=== PATIENT | female | born 1950 | race Caucasian/White ===

== ENCOUNTER 2017-02-10 14:01 | Emergency (ER) | payer BC ==
[~2017-02-10] VITALS: Ht 147.3 cm; Wt 72.6 kg
[~2017-02-10 14:01] MED LIST: ASPI81TA28 PO; ATEN50TA8 PO; CLOP1TAB15 PO; HYDR2TAB48 PO; IPRA1AER2 INH; MAGN400T6 PO; METO1TAB55 PO; MULT-506 PO; NITR0.4D TD; NORT10CA2 PO; OMEG10007 PO; PANC6000 PO; PANT40TA PO; TRAM-10 PO; TRIATAB3 PO
[2017-02-10 14:09] VITALS: TEMP 36.6; Ht 147.3 cm; Wt 72.6 kg
[2017-02-10] MEDS ORDERED: SODIUM CHLORIDE 0.9% 1000ML 1,000 ML IV STA (14:51)
[2017-02-10] MEDS ORDERED: ONDANSETRON INJ 2 MG/ML 2 ML VIAL IV STA ×2 (14:51→17:00)
[2017-02-10] MEDS ORDERED: HYDROmorphone INJ 1 MG/ML SYR IV STA (14:51)
[2017-02-10 15:18] LABS: URINE APPEARANCE CLEAR (CLEAR); URINE BILIRUBIN NEG (NEG); URINE COLOR YELLOW; URINE EPITHELIAL CELL AUTO 20-30 /lpf (0-5); URINE NITRITE NEG (NEG); URINE PH 7.5 (4.5-7.5); URINE SPECIFIC GRAVITY 1.009 (1.000-1.030); UROBILINOGEN NEG (NEG); ZZUR CULT IF INDIC CLEAN CATCH NO
[2017-02-10 15:25] LABS: MANUAL MICROSCOPIC REQUIRED? NO; REVIEW REQ? NO
[2017-02-10] MEDS ORDERED: NITR0.4D2 PO (15:32)
[2017-02-10 16:10] LABS: ALT/SGPT 46 U/L (12-78); AST/SGOT 31 U/L (15-37); BLOOD UREA NITROGEN 17 mg/dl (7-18); BUN/CREATININE RATIO 19.2 (10-20); CALCIUM 9.9 mg/dl (8.5-10.1); CARBON DIOXIDE 33 mmol/L (21-32); CHLORIDE 98 mmol/L (98-107); GLUCOSE 94 mg/dl (70-99); SODIUM 141 mmol/L (136-145)
[2017-02-10 16:13] LABS: ALKALINE PHOSPHATASE 66 U/L (45-117)
[2017-02-10 16:20] LABS: HEMATOCRIT 42.6 % (37-47); MEAN CELL VOLUME 86.2 fL (80-100); MEAN CORPUSCULAR HEMOGLOBIN 31.2 pg (25-34); MEAN CORPUSCULAR HGB CONC 36.2 g/dl (32-36); MEAN PLATELET VOLUME 10.1 fL (7.4-10.4); PLATELET COUNT 333 K/uL (130-400); RED BLOOD COUNT 4.94 M/uL (4.2-5.4)
[2017-02-10 16:22] LABS: COMPLETE YES; LYMPH ABS # 2.79 K/uL (1.2-3.4); LYMPHOCYTE % 26.1 %; NEUTROPHILS % 53.9 %; VARIANT LYM ABS # 1.68 K/uL; VARIANT LYMPHOCYTE % 15.7 %
[2017-02-10] MEDS ORDERED: OPTIRAY 320 IV PRN (17:15)
--- NOTE | 2017-02-10 18:20 | DIAGNOSTIC IMAGING REPORT ---
CT SCAN OF THE ABDOMEN AND PELVIS WITH IV CONTRAST CLINICAL HISTORY: Right lower quadrant abdominal pain. COMPARISON STUDY: Prior abdominal CT scans, most recently dated 10/17/2016. TECHNIQUE: Following the IV administration of 115 cc of Optiray 320, CT scan of the abdomen and pelvis is performed from the lung bases to the proximal femora. Images are reviewed in the axial, sagittal, and coronal planes. IV contrast was administered without complication. Automated dose control exposure was utilized. CT DOSE: 452.60 mGy.cm FINDINGS: Lung bases: The heart is normal in size and without pericardial effusion. The lung bases are clear. There is a tiny hiatal hernia. Liver: The contrast-enhanced liver is enlarged, measuring 22 cm in length. The liver demonstrates diffusely diminished attenuation consistent with hepatic steatosis. There is mild central intrahepatic biliary ductal dilatation. The hepatic veins and portal veins are patent. Gallbladder: Surgically absent noting clips in the gallbladder fossa. Spleen: Normal in size and attenuation. Pancreas: Mildly atrophic and grossly unremarkable. Adrenal glands: Unremarkable. Kidneys: The contrast enhanced kidneys demonstrate mild cortical atrophy and are without hydronephrosis. The kidneys enhance symmetrically. Subcentimeter cortical hypodensities likely represent cysts but are too small for definitive characterization. Abdominal vasculature: The abdominal aorta is normal in course and caliber noting mild to moderate atherosclerotic calcification. Bowel: Mild wall no bowel obstruction is identified. A duodenal diverticulum is incidentally noted. The appendix is well-visualized and normal. Peritoneum: There is no intraperitoneal free air or abdominal ascites. There is a small fat-containing umbilical hernia. Lymphadenopathy: None. Pelvic viscera: The bladder is normal in appearance. The uterus is surgically absent. No adnexal lesion is seen. Skeletal structures: The skeletal structures are osteopenic. There is mild lumbosacral spondylosis. No lytic or blastic lesions are seen. IMPRESSION: 1. There are no acute infectious or inflammatory findings in the abdomen or pelvis. 2. Hepatomegaly and hepatic steatosis. 3. Additional findings as above. Electronically signed by: Zoltan Pelayo M.D. 02/10/2017 6:18 PM Dictated Date/Time: 02/10/2017 6:12 PM
[2017-02-10] MEDS ORDERED: ONDA4TAB46 PO (18:46)
[2017-02-10 19:04] VITALS: BP 125/74; PULSE 61; O2SAT 95
--- NOTE | 2017-02-10 21:19 | EMERGENCY ROOM VISIT NOTE ---
History Report prepared by Giana: Elvia Bergeron Under the Supervision of: Portia BaumO. First contact with patient: 14:31 Chief Complaint: ABDOMINAL PAIN Stated Complaint: SEVERE PAIN IN LWR RT SIDE AND BACK History of Present Illness The patient is a 66 year old female who presents to the Emergency Room with complaints of worsening right-sided back pain for the past 4 days. She states that her pain began suddenly while she was walking. It felt like she pulled something in her back. About an hour after the onset of her pain she began experiencing pain in her RLQ. She denies the pain wrapping around her side and states that it "just goes straight through from the back." Movement exacerbates her pain. The patient describes her pain as achy and states that yesterday it was shooting down her right leg. She also notes nausea, rhinorrhea, and cloudy urine. She has a history of kidney stones, but states that this does not feel like her typical stone because of the pain in her abdomen. She also has a history of chronic pancreatitis and states, "I think I had pancreatitis last week." The patient denies vomiting, dysuria, cough, headache, numbness, and weakness. She still has her appendix. The patient rates her current pain as a 7/ 10 in severity. She denies any weakness or numbness in her legs. No trouble ambulate. Source of History: patient Onset: 4 days ago Position: back (right-sided) Symptom Intensity: 7/10 Quality: ache Timing: worsening Modifying Factors (Worsening): movement Associated Symptoms: + abdominal pain, + nausea, + urinary symptoms (notes cloudy urine, denies dysuria), No cough, No headache, No numbness, No vomiting, No weakness Note: Pt notes rhinorrhea. Review of Systems See HPI for pertinent positives & negatives. A total of 10 systems reviewed and were otherwise negative. Past Medical & Surgical Medical Problems: (1) Benign hypertension (2) Bronchitis (3) Cholecystectomy (4) Chronic hepatitis (5) Deep venous thrombosis (6) Dyslipidemia (7) Hysterectomy (8) itractable abd pain,. 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 (12) Vomiting Family History Diabetes mellitus Kidney disease Social History Smoking Status: Never Smoker Alcohol Use: none Drug Use: none Marital Status: Housing Status: lives alone Occupation Status: employed Current/Historical Medications Scheduled Aspirin (Aspirin Ec), 81 MG PO DAILY Atenolol (Tenormin), 50 MG PO DAILY Clopidogrel (Plavix), 75 MG PO DAILY Fish Oil ([place]-3), 4 CAP PO HS Magnesium Oxide (Mag-Ox), 400 MG PO 2XWK Metoclopramide Hcl (Reglan), 5 MG PO HS Multivitamin (Multivitamin), 1 TAB PO DAILY Nitroglycerin (Nitroglycerin Transdermal), 1 PATCH PO DAILY Nortriptyline (Pamelor), 10 MG PO HS Pancrelipase (Lipase-Protease- (Creon), 2 CAP PO TIDM Pantoprazole (Protonix), 40 MG PO DAILY Triamterene/Hctz (Triamterene/Hctz 37.5-25MG), 1 TAB PO DAILY Scheduled PRN Hydromorphone Hcl (Dilaudid), 2 MG PO Q4H PRN for Pain Ondansetron Hcl (Zofran), 4 MG PO TID PRN for Nausea Tramadol (Ultram), 50 MG PO Q12 PRN for Pain Allergies Coded Allergies: Morphine (Verified Adverse Reaction, Mild, AFFECTS LIVER, 10/17/16) Statins (Verified Adverse Reaction, Mild, AFFECTS LIVER, 10/17/16) Ciprofloxacin (Verified Adverse Reaction, Unknown, GI SYMPTOMS, 10/17/16) Physical Exam Vital Signs Date Time Temp Pulse Resp B/P Pulse Ox O2 Delivery O2 Flow Rate FiO2 02/10/17 19:04 61 16 125/74 95 02/10/17 17:12 58 16 129/71 96 Room Air 02/10/17 15:49 61 18 116/70 96 Room Air 02/10/17 14:09 36.6 67 18 124/58 96 Room Air Physical Exam GENERAL: alert, well appearing, well nourished, no distress, non-toxic, sitting up in bed, disheveled. EYE EXAM: normal conjunctiva OROPHARYNX: no exudate, no erythema, lips, buccal mucosa, and tongue normal and mucous membranes are moist NECK: supple, no nuchal rigidity, no adenopathy, non-tender LUNGS: Clear to auscultation. Normal chest wall mechanics HEART: no murmurs, S1 normal and S2 normal ABDOMEN: abdomen soft, minimal tenderness in the right mid to lower quadrant, normo-active bowel sounds, no masses, no rebound or guarding. BACK: Back is symmetrical on inspection and there is no deformity, acute reproducible right lower lumbar perispinal tenderness, no bruising or induration. SKIN: no rashes and no bruising UPPER EXTREMITIES: upper extremities are grossly normal. LOWER EXTREMITIES: Legs: flexion/extension hip, knee, ankle, and EHL 5/5 bilaterally. Patellar and Achilles reflexes are 1/4 bilaterally, gross sensation intact. NEURO EXAM: Normal sensorium, cranial nerves II-XII grossly intact, normal speech, no gross weakness of arms, no gross weakness of legs. Medical Decision & Procedures ER Provider Diagnostic Interpretation: Radiology results as stated below per my review and the radiologist's interpretation: CT SCAN OF THE ABDOMEN AND PELVIS WITH IV CONTRAST CLINICAL HISTORY: Right lower quadrant abdominal pain. COMPARISON STUDY: Prior abdominal CT scans, most recently dated 10/17/2016. TECHNIQUE: Following the IV administration of 115 cc of Optiray 320, CT scan of the abdomen and pelvis is performed from the lung bases to the proximal femora. Images are reviewed in the axial, sagittal, and coronal planes. IV contrast was administered without complication. Automated dose control exposure was utilized. CT DOSE: 452.60 mGy.cm FINDINGS: Lung bases: The heart is normal in size and without pericardial effusion. The lung bases are clear. There is a tiny hiatal hernia. Liver: The contrast-enhanced liver is enlarged, measuring 22 cm in length. The liver demonstrates diffusely diminished attenuation consistent with hepatic steatosis. There is mild central intrahepatic biliary ductal dilatation. The hepatic veins and portal veins are patent. Gallbladder: Surgically absent noting clips in the gallbladder fossa. Spleen: Normal in size and attenuation. Pancreas: Mildly atrophic and grossly unremarkable. Adrenal glands: Unremarkable. Kidneys: The contrast enhanced kidneys demonstrate mild cortical atrophy and are without hydronephrosis. The kidneys enhance symmetrically. Subcentimeter cortical hypodensities likely represent cysts but are too small for definitive characterization. Abdominal vasculature: The abdominal aorta is normal in course and caliber noting mild to moderate atherosclerotic calcification. Bowel: Mild wall no bowel obstruction is identified. A duodenal diverticulum is incidentally noted. The appendix is well-visualized and normal. Peritoneum: There is no intraperitoneal free air or abdominal ascites. There is a small fat-containing umbilical hernia. Lymphadenopathy: None. Pelvic viscera: The bladder is normal in appearance. The uterus is surgically absent. No adnexal lesion is seen. Skeletal structures: The skeletal structures are osteopenic. There is mild lumbosacral spondylosis. No lytic or blastic lesions are seen. IMPRESSION: 1. There are no acute infectious or inflammatory findings in the abdomen or pelvis. 2. Hepatomegaly and hepatic steatosis. 3. Additional findings as above. Electronically signed by: Zoltan Pelayo M.D. 02/10/2017 6:18 PM Dictated Date/Time: 02/10/2017 6:12 PM Laboratory Results 02/10/17 15:40 Red Blood Count 4.94, Mean Corpuscular Volume 86.2, Mean Corpuscular Hemoglobin 31.2, Mean Corpuscular Hemoglobin Concent 36.2, Mean Platelet Volume 10.1 02/10/17 15:40 Test 02/10/17 15:04 02/10/17 15:40 Urine Color YELLOW Urine Appearance CLEAR (CLEAR) Urine pH 7.5 (4.5-7.5) Urine Specific [place] 1.009 (1.000-1.030) Urine Protein NEG (NEG) Urine Glucose (UA) NEG (NEG) Urine Ketones NEG (NEG) Urine Occult Blood NEG (NEG) Urine Nitrite NEG (NEG) Urine Bilirubin NEG (NEG) Urine Urobilinogen NEG (NEG) Urine Leukocyte Esterase TRACE (NEG) Urine WBC (Auto) 1-5 /hpf (0-5) Urine RBC (Auto) 0-4 /hpf (0-4) Urine Hyaline Casts (Auto) 0 /lpf (0-5) Urine Epithelial Cells (Auto) 20-30 /lpf (0-5) Urine Bacteria (Auto) NEG (NEG) White Blood Count 10.70 K/uL (4.8-10.8) Red Blood Count 4.94 M/uL (4.2-5.4) Hemoglobin 15.4 g/dL (12.0-16.0) Hematocrit 42.6 % (37-47) Mean Corpuscular Volume 86.2 fL (80-100) Mean Corpuscular Hemoglobin 31.2 pg (25-34) Mean Corpuscular Hemoglobin Concent 36.2 g/dl (32-36) Platelet Count 333 K/uL (130-400) Mean Platelet Volume 10.1 fL (7.4-10.4) RDW Standard Deviation 40.7 fL (36.4-46.3) RDW Coefficient of Variation 12.8 % (11.5-14.5) Neutrophils % (Manual) 53.9 % Lymphocytes % (Manual) 26.1 % Variant Lymphocytes % (manual) 15.7 % Monocytes % (Manual) 4.3 % Neutrophils # (Manual) 5.77 K/uL (1.4-6.5) Total Absolute Neutrophils 5.77 K/uL (1.4-6.5) Lymphocytes # (Manual) 2.79 K/uL (1.2-3.4) Absolute Variant Lymphocytes 1.68 K/uL Total Absolute Lymphocytes 4.47 K/uL (1.2-3.4) Monocytes # (Manual) 0.46 K/uL (0.11-0.59) Red Blood Cell Morphology Unremarkable Anion Gap 10.0 mmol/L (3-11) Est Creatinine Clear Calc Drug Dose 53.4 ml/min Estimated GFR () 78.3 Estimated GFR (Non- 67.6 BUN/Creatinine Ratio 19.2 (10-20) Calcium Level 9.9 mg/dl (8.5-10.1) Total Bilirubin 0.5 mg/dl (0.2-1) Direct Bilirubin < 0.1 mg/dl (0-0.2) Aspartate Amino Transf (AST/SGOT) 31 U/L (15-37) Alanine Aminotransferase (ALT/SGPT) 46 U/L (12-78) Alkaline Phosphatase 66 U/L (45-117) Total Protein 8.6 gm/dl (6.4-8.2) Albumin 4.2 gm/dl (3.4-5.0) Lipase 184 U/L (73-393) Laboratory results per my review. Medications Administered Medications (Trade) Dose Ordered Sig/Cong Route Start Time Stop Time Status Last Admin Dose Admin Sodium Chloride (Nss 1000ml) 1,000 ml @ 999 mls/hr Q1H1M STAT IV 02/10/17 14:51 02/10/17 15:51 DC 02/10/17 15:49 999 MLS/HR Ondansetron HCl (Zofran Inj) 4 mg NOW STAT IV 02/10/17 14:51 02/10/17 14:53 DC 02/10/17 15:49 4 MG Hydromorphone HCl (Dilaudid Inj) 1 mg NOW STAT IV 02/10/17 14:51 02/10/17 14:53 DC 02/10/17 15:49 1 MG Ondansetron HCl (Zofran Inj) 4 mg NOW STAT IV 02/10/17 17:00 02/10/17 17:01 DC 02/10/17 17:11 4 MG ED Course ED COURSE: Vital signs were reviewed and showed normal vitals. The patients medical record was reviewed The above diagnostic studies were performed and reviewed. ED treatments and interventions as stated above. 1440: The patient was evaluated in room A2. A complete history and physical examination was performed. 1451: Dilaudid 1 mg IV, Zofran 4 mg IV, NSS 1000 ml @ 999 mls/hr IV 1700: Zofran 4 mg IV 1716: The patient is at CT. I updated her family. 1833: Upon reevaluation, the patient is feeling better and resting comfortably. She wants to go home. I discussed my findings with the patient and she understands and agrees with the treatment plan. Based on the patients age, coexisting illnesses, exam and lab findings the decision to treat as an outpatient was made. The patient remained stable while under my care. The patient appeared well at the time of discharge. Medical Decision Differential diagnoses includes but is not limited to gastritis, peptic ulcer disease, GERD, pancreatitis, small bowel obstruction, acute coronary syndrome, pericarditis, ischemic bowel, irritable bowel disease, irritable bowel syndrome , appendicitis, diverticulitis, malignancy, hernia, urinary tract infection, torsion, perforation, trauma, infectious. Patient is a 66-year-old female who presents the ER for lower back pain associated with right lower quadrant abdominal pain. She notes that started 2-3 days ago. No trouble moving her bowels. She does have a history of pancreatitis. Vitals were unremarkable. Labs show no significant leukocytosis or anemia. BMP shows a mild hypokalemia at 3.0. LFTs along with bilirubin and lipase were normal. UA was normal. CT of the abdomen and pelvis shows no obstruction, stone which is not supported by UA, pericarditis or appendicitis. Patient is given IV normal saline, Zofran and Dilaudid 1. She felt slightly better. She was updated in regards to your findings. Offered observation due to possible chronic pancreatitis and muscle skeletal back pain but patient declined and left to follow-up follow with her primary care doctor. Discussed with Pt concerning signs and symptoms to watch out for. Pt was instructed to follow up with their PCP and discussed with the patient their option to return to the ED at anytime for persistent or worsening symptoms. The appropriate anticipatory guidance and out-patient management, including indications for return to the emergency department, were explained at length to the patient and understood. Impression Primary Impression: Pancreatitis Additional Impression: Back pain Scribe Attestation The scribe's documentation has been prepared under my direction and personally reviewed by me in its entirety. I confirm that the note above accurately reflects all work, treatment, procedures, and medical decision making performed by me. Departure Information Dispostion Home / Self-Care Prescriptions Ondansetron Hcl (ZOFRAN) 4 Mg Tab 4 MG PO TID Y for Nausea, #20 TAB Prov: Jaime Gilbert, DO 02/10/17 Referrals No Doctor, Assigned (PCP) Forms HOME CARE DOCUMENTATION FORM, IMPORTANT VISIT INFORMATION Patient Instructions Abdominal Pain - [facility], [facility], Pancreatitis Acute Dc Additional Instructions Please follow up with your primary care doctor with in the next 24 hours. Any worsening of your symptoms, please return to the ED immediately. This includes fevers grade and 100.4, persistent nausea vomiting, worsening the pain, or any other concerning signs or symptoms from your standpoint. Problem Qualifiers Primary Impression: Pancreatitis Chronicity: acute Pancreatitis type: unspecified pancreatitis type Acute pancreatitis complication: unspecified Qualified Codes: K85.90 - Acute pancreatitis without necrosis or infection, unspecified Additional Impression: Back pain Back pain location: low back pain Chronicity: acute Back pain laterality: right Sciatica presence: without sciatica Qualified Codes: M54.5 - Low back pain
== END 2017-02-10 19:05 | disposition home or self-care (01) ==
LOC: C.EDB 14:02 → C.EDA 19:05
DX: K85.90 Acute pancreatitis without necrosis or infection, unspecified (principal); M54.5 Low back pain; I10 Essential (primary) hypertension; E78.5 Hyperlipidemia, unspecified; Z83.3 Family history of diabetes mellitus; Z79.82 Long term (current) use of aspirin

== ENCOUNTER 2017-05-31 10:06 | Emergency (ER) | payer BC, OTHER ==
[~2017-05-31 10:06] MED LIST changes: -IPRA1AER2 INH; -NITR0.4D TD; +NITR0.4D2 PO; +ONDA4TAB46 PO
[2017-05-31 10:25] VITALS: TEMP 36.7; Ht 147.3 cm
--- NOTE | 2017-05-31 11:10 | DIAGNOSTIC IMAGING REPORT ---
RIGHT ANKLE MIN 3 VIEWS ROUTINE CLINICAL HISTORY: ANKLE PAIN Right pain COMPARISON: None. DISCUSSION: The bones and joint spaces appear intact. There is no evidence of fracture, dislocation or bony disease. There is no evidence for soft tissue swelling. IMPRESSION: Negative study. The above report was generated using voice recognition software. It may contain grammatical, syntax or spelling errors. Electronically signed by: Lazarus Braden M.D. 05/31/2017 11:08 AM Dictated Date/Time: 05/31/2017 11:08 AM
[2017-05-31] MEDS ORDERED: HYDROmorphone INJ 1 MG/ML SYR IV STA (11:11)
--- NOTE | 2017-05-31 11:16 | EMERGENCY ROOM VISIT NOTE ---
History First contact with patient: 11:02 Chief Complaint: ANKLE PAIN Stated Complaint: RT ANKLE AND LEG PAIN History of Present Illness The patient is a 66 year old female who presents to the Emergency Room with complaints of right leg pain. The patient states that 2 days ago she got up out of a chair and had a severe pain in the right ankle and leg. The patient states that occasionally the pain will radiate from the low back down the right leg. She states the most severe pain is on the medial aspect of the right tib- fib and ankle. She rates her discomfort a 9/10. She states that she is not able to walk. She states that she is not able to function at home because of the pain. The patient was seen at an emergency department and had a normal x- ray. The patient's pain has continued to worsen. She denies any fevers. She denies any pain in her chest or trouble breathing. She denies any abdominal pain, nausea or vomiting. She states it is occasionally red, swollen and warm. The patient states that she has had phlebitis and neuritis in the past and feels that the pain is similar. Review of Systems A 10 system review of systems was completed with positives and pertinent negatives listed in the HPI. Past Medical/Surgical History Medical Problems: (1) Benign hypertension (2) Bronchitis (3) Cholecystectomy (4) Chronic hepatitis (5) Deep venous thrombosis (6) Dyslipidemia (7) Hysterectomy (8) itractable abd pain,. 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 (12) Vomiting Family History Diabetes mellitus Kidney disease Social History Smoking Status: Never Smoker Alcohol Use: none Drug Use: none Marital Status: Housing Status: lives alone Occupation Status: employed Current/Historical Medications Scheduled Aspirin (Aspirin Ec), 81 MG PO DAILY Atenolol (Tenormin), 50 MG PO DAILY Clopidogrel (Plavix), 75 MG PO DAILY Fish Oil ([place]-3), 4 CAP PO HS Magnesium Oxide (Mag-Ox), 400 MG PO 2XWK Metoclopramide Hcl (Reglan), 5 MG PO HS Multivitamin (Multivitamin), 1 TAB PO DAILY Nitroglycerin (Nitroglycerin Transdermal), 1 PATCH PO DAILY Nortriptyline (Pamelor), 10 MG PO HS Pancrelipase (Lipase-Protease- (Creon), 2 CAP PO TIDM Pantoprazole (Protonix), 40 MG PO DAILY Potassium Chloride (Micro-K Ext Rel), 10 MEQ PO DAILY Triamterene/Hctz (Triamterene/Hctz 37.5-25MG), 1 TAB PO DAILY Scheduled PRN Hydromorphone Hcl (Dilaudid), 2 MG PO Q4H PRN for Pain Ondansetron Hcl (Zofran), 4 MG PO TID PRN for Nausea Tramadol (Ultram), 50 MG PO Q12 PRN for Pain Physical Exam Vital Signs Date Time Temp Pulse Resp B/P (MAP) Pulse Ox O2 Delivery O2 Flow Rate FiO2 05/31/17 15:16 67 16 114/66 96 Room Air 05/31/17 13:56 62 16 144/77 96 Room Air 05/31/17 12:12 67 16 143/89 94 Room Air 05/31/17 10:25 36.7 72 20 115/74 94 Room Air Physical Exam VITALS: Vitals are noted on the nurse's note and reviewed by myself. Vital signs stable. The patient is afebrile. GENERAL: This is a 66-year-old female, in no acute distress, nondiaphoretic, well-developed well-nourished. SKIN: The skin was without rashes, erythema, edema, or bruising. There is no tenting of the skin. Capillary reflex less than 2 seconds. HEAD: Normocephalic atraumatic. EARS: The external ears are normal in appearance. EYES: Pupils equal round and reactive to light and accommodation. Conjunctivae without injection, sclerae without icterus. Extraocular movements intact. NOSE: Patent, turbinates without inflammation or discharge. MOUTH: Mucous membranes moist. Tonsils are not enlarged. Pharynx without erythema or exudate. Uvula midline. Airway patent. Tongue does not deviate. NECK: Supple without nuchal rigidity. No lymphadenopathy. No thyromegaly. Cervical spine is nontender. No JVD. HEART: Regular rate and rhythm without murmurs gallops or rubs. LUNGS: Clear to auscultation bilaterally without wheezes, rales or rhonchi. No retractions or accessory muscle use. MUSCULOSKELETAL: No muscle atrophy, erythema, or edema noted. There is tenderness to palpation in the lower lumbar spine. There is marked tenderness to palpation over the right lower extremity on the medial aspect. The remaining extremities are otherwise unremarkable Strength 5/5 throughout. NEURO: Patient was alert and oriented to person place and time. Normal sensation to light and sharp touch. Deep tendon reflexes 2+ in the lower extremities bilaterally. No focal neurological deficits. Medical Decision & Procedures ER Provider Diagnostic Interpretation: LUMBAR SPINE WITHOUT CT DOSE: 612.18 mGycm HISTORY: Pain low back and right leg pain TECHNIQUE: Multiaxial CT images of the lumbar spine were performed and reformatted in the sagittal and coronal plane without the use of contrast. A dose lowering technique was utilized adhering to the principles of ALARA. COMPARISON: None. FINDINGS: No fractures. No subluxation. Paraspinal soft tissues are unremarkable. IMPRESSION: No fractures within the lumbar spine. RIGHT VENOUS DOPP LOWER EXT UNILAT CLINICAL HISTORY: right leg pain Right pain. Edema. TECHNIQUE: Venous Doppler COMPARISON STUDY: None FINDINGS: Normal study IMPRESSION: Normal study RIGHT ANKLE MIN 3 VIEWS ROUTINE CLINICAL HISTORY: ANKLE PAIN Right pain COMPARISON: None. DISCUSSION: The bones and joint spaces appear intact. There is no evidence of fracture, dislocation or bony disease. There is no evidence for soft tissue swelling. IMPRESSION: Negative study. Laboratory Results 05/31/17 11:22 Red Blood Count 4.84, Mean Corpuscular Volume 89.9, Mean Corpuscular Hemoglobin 32.2, Mean Corpuscular Hemoglobin Concent 35.9, Mean Platelet Volume 10.1, Neutrophils (%) (Auto) 65.0, Lymphocytes (%) (Auto) 24.7, Monocytes (%) (Auto) 8.3, Eosinophils (%) (Auto) 1.3, Basophils (%) (Auto) 0.4, Neutrophils # (Auto) 8.28, Lymphocytes # (Auto) 3.14, Monocytes # (Auto) 1.06, Eosinophils # (Auto) 0.16, Basophils # (Auto) 0.05 05/31/17 11:22 Test 05/31/17 11:22 05/31/17 11:31 White Blood Count 12.73 K/uL (4.8-10.8) Red Blood Count 4.84 M/uL (4.2-5.4) Hemoglobin 15.6 g/dL (12.0-16.0) Hematocrit 43.5 % (37-47) Mean Corpuscular Volume 89.9 fL (80-100) Mean Corpuscular Hemoglobin 32.2 pg (25-34) Mean Corpuscular Hemoglobin Concent 35.9 g/dl (32-36) Platelet Count 364 K/uL (130-400) Mean Platelet Volume 10.1 fL (7.4-10.4) Neutrophils (%) (Auto) 65.0 % Lymphocytes (%) (Auto) 24.7 % Monocytes (%) (Auto) 8.3 % Eosinophils (%) (Auto) 1.3 % Basophils (%) (Auto) 0.4 % Neutrophils # (Auto) 8.28 K/uL (1.4-6.5) Lymphocytes # (Auto) 3.14 K/uL (1.2-3.4) Monocytes # (Auto) 1.06 K/uL (0.11-0.59) Eosinophils # (Auto) 0.16 K/uL (0-0.5) Basophils # (Auto) 0.05 K/uL (0-0.2) RDW Standard Deviation 43.8 fL (36.4-46.3) RDW Coefficient of Variation 13.2 % (11.5-14.5) Immature Granulocyte % (Auto) 0.3 % Immature Granulocyte # (Auto) 0.04 K/uL (0.00-0.02) Erythrocyte Sedimentation Rate 17 mm/hr (0-21) Anion Gap 7.0 mmol/L (3-11) Estimated GFR () 61.4 Estimated GFR (Non- 53.0 BUN/Creatinine Ratio 18.7 (10-20) Uric Acid 10.6 mg/dl (2.6-7.2) Calcium Level 10.5 mg/dl (8.5-10.1) Total Bilirubin 0.8 mg/dl (0.2-1) Aspartate Amino Transf (AST/SGOT) 81 U/L (15-37) Alanine Aminotransferase (ALT/SGPT) 74 U/L (12-78) Alkaline Phosphatase 99 U/L (45-117) Total Creatine Kinase 110 U/L (26-192) C-Reactive Protein 2.69 mg/dl (0-0.29) Total Protein 8.7 gm/dl (6.4-8.2) Albumin 4.0 gm/dl (3.4-5.0) Globulin 4.7 gm/dl (2.5-4.0) Albumin/Globulin Ratio 0.9 (0.9-2) Prothrombin Time 10.2 SECONDS (9.0-12.0) Prothromb Time International Ratio 1.0 (0.9-1.1) Activated Partial Thromboplast Time 27.1 SECONDS (21.0-31.0) Partial Thromboplastin Ratio 1.0 Medications Administered Medications (Trade) Dose Ordered Sig/Cong Route Start Time Stop Time Status Last Admin Dose Admin Hydromorphone HCl (Dilaudid Inj) 1 mg NOW STAT IV 05/31/17 11:11 05/31/17 11:14 DC 05/31/17 11:25 1 MG Ondansetron HCl (Zofran Odt) 4 mg ONE ONCE PO 05/31/17 12:15 05/31/17 12:16 DC 05/31/17 12:12 4 MG Ketorolac Tromethamine (Toradol Inj) 30 mg NOW STAT IV 05/31/17 13:33 05/31/17 13:35 DC 05/31/17 13:54 30 MG Promethazine HCl 25 mg/Sodium Chloride 51 ml @ 204 mls/hr NOW STAT IV 05/31/17 13:33 05/31/17 13:47 DC 05/31/17 13:54 204 MLS/HR Potassium Chloride (Klor-Con M10) 40 meq NOW STAT PO 05/31/17 14:38 05/31/17 14:39 DC 05/31/17 15:10 40 MEQ ED Course The patient was seen and examined. Previous visits were reviewed. The patient does not have a fever. She does have a leukocytosis of 12.73. Her sedimentation rate is not elevated. Potassium is low at 3.0. Uric acid is elevated at 10.6. CRP is elevated at 2.69. INR is 1.0. X-ray of the right ankle does not reveal acute abnormality Ultrasound of the right lower extremities negative for DVT or phlebitis CT scan of the lumbar spine does not reveal any acute finding the patient was given 1 mg IV Dilaudid and 4 mg IV Zofran She was given 30 mg IV Toradol She was given 25 mg IV Phenergan as her nausea persisted. She was given 40 mEq by mouth K-dur for for the hypokalemia. The patient presents to the emergency department with severe lower extremity pain. The pain is over the medial malleolus but radiates proximally. She states she also occasionally has pain in the low back that radiates down the leg. The exact etiology of the patient's symptoms are not clear at this time. It could represent gout. She does not have any redness, swelling, warmth of the toes or ankle on the right. There is no sign of cellulitis. There is no evidence for DVT. There is no evidence for phlebitis. I considered that this could be coming from her back. CT imaging of the lumbar spine does not reveal any significant obvious abnormality. The patient complains of severe pain seems to be out of proportion. As the etiology was not clear, I did ask my attending physician, Dr. Ho, to also evaluate the patient. He evaluated her and recommended a walker, follow-up with orthopedics for further evaluation and management. The patient does take Plavix so I was hesitant to give her anti -inflammatories. She was given a small prescription for potassium tablets at her request. She also states that she has Dilaudid and oxycodone at home. She was given a walker. She should return to the ER with any worsening symptoms. Otherwise, she should follow-up with her family doctor in/or orthopedics if symptoms persist. The patient was also seen and examined by who agrees with the assessment and treatment plan. Medical Decision DIFFERENTIAL DIAGNOSIS: Lumbar strain, degenerative disc disease, spondylolisthesis, herniated disc, spinal stenosis, osteoporosis, fracture, cauda equina syndrome, neoplasm, infection, inflammatory arthritis, phlebitis, DVT, fracture, gout, strain, sprain, among others. Blood Pressure Screening Patient's blood pressure: Normal blood pressure Blood pressure disposition: Did not require urgent referral Impression Primary Impression: Right ankle pain Additional Impression: Hypokalemia Departure Information Dispostion Home / Self-Care Condition GOOD Prescriptions Potassium Chloride (Micro-K Ext Rel) 10 Meq Capcr 10 MEQ PO DAILY for 5 Days, #5 CAP Prov: Halie Thapa PA-C 05/31/17 Referrals No Doctor, Assigned (PCP) Patient Instructions My [facility] [place] [facility] Additional Instructions Take your pain medication as prescribed, as needed Take the potassium as prescribed Try anti-inflammatories use with caution given that you take Plavix Contact your family doctor and/or orthopedics first thing in the morning to schedule a follow-up appointment Return with any worsening symptoms Problem Qualifiers
[2017-05-31 11:39] LABS: BASO % 0.4 %; BASO ABS # 0.05 K/uL (0-0.2); COMPLETE YES; EOS % 1.3 %; HEMATOCRIT 43.5 % (37-47); IG% 0.3 %; LYMPH % 24.7 %; LYMPH ABS # 3.14 K/uL (1.2-3.4); MEAN CELL VOLUME 89.9 fL (80-100); MEAN CORPUSCULAR HEMOGLOBIN 32.2 pg (25-34); MEAN CORPUSCULAR HGB CONC 35.9 g/dl (32-36); MEAN PLATELET VOLUME 10.1 fL (7.4-10.4); MONO % 8.3 %; PLATELET COUNT 364 K/uL (130-400); RED BLOOD COUNT 4.84 M/uL (4.2-5.4); WHITE BLOOD COUNT 12.73 K/uL (4.8-10.8)
[2017-05-31 11:59] LABS: PROTHROMBIN TIME (PATIENT) 10.2 SECONDS (9.0-12.0)
[2017-05-31 12:00] LABS: ALT/SGPT 74 U/L (12-78); BLOOD UREA NITROGEN 21 mg/dl (7-18); BUN/CREATININE RATIO 18.7 (10-20); C-REACTIVE PROTEIN 2.69 mg/dl (0-0.29); CALCIUM 10.5 mg/dl (8.5-10.1); CARBON DIOXIDE 32 mmol/L (21-32); CHLORIDE 97 mmol/L (98-107); GLUCOSE 106 mg/dl (70-99); SODIUM 136 mmol/L (136-145); URIC ACID 10.6 mg/dl (2.6-7.2)
[2017-05-31 12:03] LABS: ALB/GLOB RATIO 0.9 (0.9-2); ALKALINE PHOSPHATASE 99 U/L (45-117); AST/SGOT 81 U/L (15-37)
--- NOTE | 2017-05-31 12:04 | DIAGNOSTIC IMAGING REPORT ---
RIGHT VENOUS DOPP LOWER EXT UNILAT CLINICAL HISTORY: right leg pain Right pain. Edema. TECHNIQUE: Venous Doppler COMPARISON STUDY: None FINDINGS: Normal study IMPRESSION: Normal study The above report was generated using voice recognition software. It may contain grammatical, syntax or spelling errors. Electronically signed by: Lazarus Braden M.D. 05/31/2017 12:02 PM Dictated Date/Time: 05/31/2017 12:02 PM
[2017-05-31] MEDS ORDERED: ONDANSETRON 4MG OD TAB PO ONE (12:15)
--- NOTE | 2017-05-31 13:16 | DIAGNOSTIC IMAGING REPORT ---
LUMBAR SPINE WITHOUT CT DOSE: 612.18 mGycm HISTORY: Pain low back and right leg pain TECHNIQUE: Multiaxial CT images of the lumbar spine were performed and reformatted in the sagittal and coronal plane without the use of contrast. A dose lowering technique was utilized adhering to the principles of ALARA. COMPARISON: None. FINDINGS: No fractures. No subluxation. Paraspinal soft tissues are unremarkable. IMPRESSION: No fractures within the lumbar spine. The above report was generated using voice recognition software. It may contain grammatical, syntax or spelling errors. Electronically signed by: Lazarus Braden M.D. 05/31/2017 1:14 PM Dictated Date/Time: 05/31/2017 1:12 PM
[2017-05-31] MEDS ORDERED: KETOROLAC TROMETHAMINE 30 MG/ML VIAL IV STA (13:33)
[2017-05-31] MEDS ORDERED: PROMETHAZINE HCL INJ 25 MG in SODIUM CHLORIDE 0.9% 50ML 50 ML IV STA (13:33)
[2017-05-31] MEDS ORDERED: POTASSIUM CHLORIDE 10 MEQ TABCR PO STA (14:38)
[2017-05-31] MEDS ORDERED: POTA10CA28 PO (14:41)
[2017-05-31 15:16] VITALS: BP 114/66; PULSE 67; O2SAT 96
== END 2017-05-31 15:16 | disposition home or self-care (01) ==
LOC: C.EDB 10:09 → C.EDD 15:16
DX: M79.661 Pain in right lower leg (principal); E87.6 Hypokalemia; M54.5 Low back pain; I10 Essential (primary) hypertension; K73.9 Chronic hepatitis, unspecified; E78.5 Hyperlipidemia, unspecified; D86.89 Sarcoidosis of other sites; Z86.718 Personal history of other venous thrombosis and embolism; Z87.442 Personal history of urinary calculi; Z90.710 Acquired absence of both cervix and uterus; Z79.82 Long term (current) use of aspirin; Z83.3 Family history of diabetes mellitus

== ENCOUNTER 2017-06-02 00:34 | Emergency (ER) | payer BC, OTHER ==
[~2017-06-02] VITALS: Ht 147.3 cm; Wt 68.0 kg
[~2017-06-02 00:34] MED LIST changes: +POTA10CA28 PO
[2017-06-02 00:39] VITALS: TEMP 36.8; Ht 147.3 cm; Wt 68.0 kg
[2017-06-02] MEDS ORDERED: POTA10CA28 PO (01:11)
[2017-06-02] MEDS ORDERED: ONDA4TAB46 PO (01:12)
[2017-06-02] MEDS ORDERED: DEXAMETHASONE SOD INJ 10 MG/ML VIAL IM ONE (01:45)
[2017-06-02] MEDS ORDERED: PRED20TA PO (01:51)
[2017-06-02 02:16] VITALS: BP 121/66; PULSE 78; O2SAT 97
--- NOTE | 2017-06-02 07:35 | EMERGENCY ROOM VISIT NOTE ---
History First contact with patient: 01:10 Chief Complaint: LEG PAIN,LEG INJURY Stated Complaint: REVISIT FOR RIGHT LEG PAIN FROM FOOT UP INTO BACK History of Present Illness The patient is a 66 year old female who presents to the Emergency Room with complaints of persistent right ankle and foot pain. The patient was here essentially yesterday for this same complaint where CT scan of her low back, ultrasound of her leg, and x-rays of her foot were negative. She did have blood work at that time, and did have a slightly elevated uric acid. This is the patient's third emergency department visit in the past 4 or 5 days for this complaint. She states that she initially went to [place], where x-rays were normal. The patient evidently has oral Dilaudid and oxycodone at home for chronic pain. She has been taking ibuprofen without relief of symptoms. She does not have new injury or trauma since yesterday. She states that she came in tonight because she is having difficulty sleeping because of her discomfort. She rates the pain a 7/10. Review of Systems More than 10 systems were reviewed and otherwise negative with the exception of history of present illness. Past Medical/Surgical History Medical Problems: (1) Benign hypertension (2) Bronchitis (3) Cholecystectomy (4) Chronic hepatitis (5) Deep venous thrombosis (6) Dyslipidemia (7) Hysterectomy (8) itractable abd pain,. 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 (12) Vomiting Family History Diabetes mellitus Kidney disease Social History Smoking Status: Never Smoker Alcohol Use: none Drug Use: none Marital Status: Housing Status: lives alone Occupation Status: employed Current/Historical Medications Scheduled Aspirin (Aspirin Ec), 81 MG PO DAILY Atenolol (Tenormin), 50 MG PO DAILY Clopidogrel (Plavix), 75 MG PO DAILY Fish Oil ([place]-3), 4 CAP PO HS Magnesium Oxide (Mag-Ox), 400 MG PO 2XWK Metoclopramide Hcl (Reglan), 5 MG PO HS Multivitamin (Multivitamin), 1 TAB PO DAILY Nitroglycerin (Nitroglycerin Transdermal), 1 PATCH PO DAILY Nortriptyline (Pamelor), 10 MG PO HS Pancrelipase (Lipase-Protease- ([place]on), 2 CAP PO TIDM Pantoprazole (Protonix), 40 MG PO DAILY Potassium Chloride (Micro-K Ext Rel), 10 MEQ PO DAILY Prednisone (Prednisone), 0 PO DAILY Triamterene/Hctz (Triamterene/Hctz 37.5-25MG), 1 TAB PO DAILY Scheduled PRN Hydromorphone Hcl (Dilaudid), 2 MG PO Q4H PRN for Pain Ondansetron Hcl (Zofran), 4 MG PO TID PRN for Nausea Tramadol (Ultram), 50 MG PO Q12 PRN for Pain Physical Exam Vital Signs Date Time Temp Pulse Resp B/P (MAP) Pulse Ox O2 Delivery O2 Flow Rate FiO2 06/02/17 02:16 78 18 121/66 97 06/02/17 00:39 36.8 81 18 124/70 94 Room Air Pain Rating (0-10): 0 Physical Exam VITALS: Vitals are noted on the nurse's note and reviewed by myself. Vital signs stable. GENERAL: Well-developed, well-nourished, white female, who is in no acute distress and resting comfortably. Patient is cooperative with the examination. HEART: Regular rate and rhythm without murmurs gallops or rubs. LUNGS: Clear to auscultation bilaterally without wheezes, rales or rhonchi. No retractions or accessory muscle use. MUSCULOSKELETAL: No significant erythema or edema appreciated of the right foot or ankle. There is no obvious infection or evidence of lymphangitic streaking. No foreign body, laceration, or abrasion. There is mild tenderness appreciated along the medial midfoot. No other significant findings appreciated. NEURO: Patient was alert and oriented to person place and time. CN II through XII grossly intact. Medical Decision & Procedures Medications Administered Medications (Trade) Dose Ordered Sig/Cong Route Start Time Stop Time Status Last Admin Dose Admin Dexamethasone Sodium Phosphate (Decadron Inj) 10 mg NOW ONCE IM 06/02/17 01:45 06/02/17 01:46 DC 06/02/17 01:41 10 MG ED Course Physical exam and history were performed. Nursing notes, EMR, and Medication List were personally reviewed. Patient appears to have persistent right ankle pain for the past several days. The patient does not have significant findings on examination. She has had 2 sets of negative x-rays, a negative ultrasound, and negative CT scan of her back regarding this complaint. She has pain medication at home that she is not taking, and I did ask her to begin this as previously prescribed. She does have an elevated uric acid based on labs yesterday, and is oriented taking NSAIDs. I will trial a dose of IM Decadron here in the department and give her a course of prednisone. The patient needs to follow with her primary care physician this week for further care and management. I do not suspect a septic joint based on her exam and history. The patient was otherwise invited back to the emergency department with any new, worsening, or concerning symptoms. The chart was completed utilizing [employer] Speech Voice Recognition Software. Grammatical errors, random word insertions, pronoun errors, and incomplete sentences are an occasional consequence of this system due to software limitations, ambient noise, and hardware issues. Any formal questions or concerns about the content, text, or information contained within the body of this dictation should be directly addressed to the provider for clarification. . Medical Decision Differential diagnosis includes, but is not limited to: Sprain, strain, fracture , dislocation, subluxation, contusion, gout, infection, osteomyelitis, tendinitis, fasciitis, and others Medication Reconcilliation Current Medication List: was personally reviewed by me Blood Pressure Screening Patient's blood pressure: Normal blood pressure Impression Primary Impression: Right ankle pain Additional Impression: Elevated blood uric acid level Departure Information Dispostion Home / Self-Care Condition GOOD Prescriptions Prednisone (Prednisone) 20 Mg Tab 0 PO DAILY, #18 TAB 3 DAILY FOR 3 DAYS, THEN 2 DAILY FOR 3 DAYS, THEN 1 DAILY FOR 3 DAYS. Prov: Anthony Lou PA-C 06/02/17 Forms HOME CARE DOCUMENTATION FORM, IMPORTANT VISIT INFORMATION Patient Instructions My [facility] Additional Instructions You were seen and evaluated today on an emergency basis only. This is not a substitute for, or an effort to provide, complete comprehensive medical care. It is not possible to recognize and treat all injuries or illnesses in a single emergency department visit. For this reason it is recommended that you followup with your primary care physician this week for ongoing care and evaluation. Continue your pain medications at home. Take prednisone as prescribed. You are welcome to return to the emergency department anytime with new, worsening, or concerning symptoms. Problem Qualifiers
== END 2017-06-02 02:19 | disposition home or self-care (01) ==
LOC: C.EDB 00:36
DX: M25.571 Pain in right ankle and joints of right foot (principal); E79.0 Hyperuricemia without signs of inflammatory arthritis and tophaceous disease; I10 Essential (primary) hypertension; E78.5 Hyperlipidemia, unspecified; D86.9 Sarcoidosis, unspecified; Z83.3 Family history of diabetes mellitus; Z79.82 Long term (current) use of aspirin